=== PATIENT | female | born 1990 | race Hispanic/Latino ===

== ENCOUNTER 2018-03-17 07:31 | Emergency (ER) | payer OTHER ==
[2018-03-17 07:35] VITALS: BMI 46.5
[2018-03-17] MEDS ORDERED: Lidocaine 5% Patch TD STA (07:56)
[2018-03-17] MEDS ORDERED: Lidocaine 5% Patch TD ONE (08:03)
--- NOTE | 2018-03-17 08:52 | ED PDOC ---
HPI: Back Time Seen by Provider: 03/17/18 07:45 Chief Complaint (Nursing): Back Pain Chief Complaint (Provider): Back Pain History Per: Patient History/Exam Limitations: no limitations Onset/Duration Of Symptoms: Days (x1) Current Symptoms Are (Timing): Still Present Quality Of Discomfort: Sharp Previous Symptoms: None Associated Symptoms: None Additional Complaint(s): Helen Benitez is a 27 year old female, with no significant past medical history, who presents to the emergency department complaining of a low back pain onset since yesterday while sitting at work. Patient describes pain as sharp and states left is greater than right and radiates from lower back to buttocks down mostly her left leg. Patient took Motrin with minimal relief. Patient states pain worsen this morning which prompted ED visit. She is flying to [place], [place] and is requesting pain medications. She denies any incontinence, urinary retention, saddle anesthesia, weakness or numbness. She denies any trauma or fever. She denies any history of prior back problems other than mild aches or pains. No further medical complaints. PMD: None provided. Past Medical History Reviewed: Historical Data, Nursing Documentation, Vital Signs Vital Signs: Last Vital Signs Temp 98.3 F 03/17/18 07:37 Pulse 86 03/17/18 07:37 Resp 20 03/17/18 07:37 BP 107/59 L 03/17/18 07:37 Pulse Ox 97 03/17/18 07:37 - Medical History PMH: No Chronic Diseases - Surgical History Surgical History: No Surg Hx - Family History Family History: States: Unknown Family Hx - Social History Current smoker - smoking cessation education provided: No Alcohol: None Drugs: Denies - Home Medications Home Medications: Ambulatory Orders Medication Instructions Recorded Cephalexin [cephalexin] 500 mg PO TID #15 cap 03/17/18 Cyclobenzaprine [Cyclobenzaprine 10 mg PO Q8 PRN #9 tab 03/17/18 HCl] Ibuprofen [Motrin Tab] 600 mg PO Q6 PRN #15 tab 03/17/18 traMADol [Ultram] 50 mg PO TID PRN #12 tab 03/17/18 - Allergies Allergies/Adverse Reactions: Allergies Allergy/AdvReac Type Severity Reaction Status Date / Time No Known Allergies Allergy Verified 03/17/18 07:49 Review of Systems Genitourinary Female: Negative for: Dysuria, Frequency, Incontinence Musculoskeletal: Positive for: Back Pain Skin: Negative for: Rash Neurological: Negative for: Headache, Dizziness Physical Exam - Reviewed Nursing Documentation Reviewed: Yes Vital Signs Reviewed: Yes - Physical Exam Appears: Positive for: No Acute Distress Head Exam: Positive for: ATRAUMATIC, NORMAL INSPECTION, NORMOCEPHALIC Skin: Positive for: Normal Color, Warm, Dry Eye Exam: Positive for: Normal appearance, EOMI, PERRL Neck: Positive for: Painless ROM Cardiovascular/Chest: Positive for: Regular Rate, Rhythm. Negative for: Murmur Respiratory: Positive for: Normal Breath Sounds. Negative for: Respiratory Distress Gastrointestinal/Abdominal: Positive for: Normal Exam, Soft. Negative for: Tenderness Back: Positive for: Other (Left lower lumbar tenderness w/ loss of ROM) Extremity: Positive for: Normal ROM (full ROM of lower extremities). Negative for: Deformity Neurologic/Psych: Positive for: Alert, Oriented. Negative for: Motor/Sensory Deficits - ECG O2 Sat by Pulse Oximetry: 97 (RA) Pulse Ox Interpretation: Normal Medical Decision Making Medical Decision Making: Time: 07:45 Initial Impression: back pain Initial Plan: --Urine dipstick --Urine --Tylenol 325mg tab 650 mg PO --Flexeril 10 mg PO --Toradol 30 mg IM --Lidoderm 1 ea TD --Reevaluation -Plan will be for pain relief and reevaluation. 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 re-evaluated frequently with gradual improvement of symptoms DC w NSAID, muscle relaxant and keflex for UTI. No flank pain or CVA tenderness to suggest acute pyelo at this time, but instructed return for fever , weakness, ascending pain or any concern. ----- Scribe Attestation: Documented by Bao Solis, acting as a scribe for Naif Erazo MD. Provider Scribe Attestation: All medical record entries made by the Scribe were at my direction and personally dictated by me. I have reviewed the chart and agree that the record accurately reflects my personal performance of the history, physical exam, medical decision making, and the department course for this patient. I have also personally directed, reviewed, and agree with the discharge instructions and disposition. Disposition - Clinical Impression Clinical Impression: Back pain, UTI (urinary tract infection) - Patient ED Disposition Is Patient to be Admitted: No Counseled Patient/Family Regarding: Studies Performed, Diagnosis, Need For Followup - Disposition Referrals: [facility] [Outside] Disposition: Routine/Home Disposition Time: 11:01 Condition: STABLE Additional Instructions: FOLLOWUP WITH YOUR DOCTOR FOR FURTHER TESTING. RETURN TO ER FOR ANY WEAKNESS, NUMBNESS, FEVER OR WORSE PAIN. TAKE MEDICATIONS DIRECTED. Prescriptions: Cephalexin [cephalexin] 500 mg PO TID #15 cap Cyclobenzaprine [Cyclobenzaprine HCl] 10 mg PO Q8 PRN #9 tab PRN Reason: Muscle Spasm Ibuprofen [Motrin Tab] 600 mg PO Q6 PRN #15 tab PRN Reason: Pain, Moderate (4-7) traMADol [Ultram] 50 mg PO TID PRN #12 tab PRN Reason: Pain, Moderate (4-7) Instructions: Urinary Tract Infections in Adults, Low Back Pain in Adults Forms: [employer] (Paraguayan), [facility] ED School/Work Excuse
[2018-03-17] MEDS ORDERED: Oxycodone/Acetaminophen 5/325 mg Tab PO STA (09:59)
[2018-03-17] MEDS ORDERED: Oxycodone/Acetaminophen 5/325 mg Tab ONE (10:27)
[2018-03-17 11:31] VITALS: BP 129/79; PULSE 80; RESP 16; TEMP 98.2
[2018-03-17 12:01] LABS: SQUAMOUS EPITHIAL 7 /hpf (0-5); URINE BILIRUBIN NEGATIVE (NEGATIVE); URINE BLOOD NEGATIVE (NEGATIVE); URINE CLARITY SLIGHTY-CLOUDY (Clear); URINE COLOR YELLOW (YELLOW); URINE GLUCOSE (UA) NEG (Normal); URINE LEUKOCYTE ESTERASE MOD Leu/uL (Negative); URINE PROTEIN NEGATIVE (NEGATIVE); URINE UROBILINOGEN 0.2-1.0 mg/dL (0.2-1.0)
[2018-03-18 10:34] VITALS: O2SAT 97
== END 2018-03-17 11:32 | disposition home or self-care (01) ==
LOC: H.ER 07:31
DX: M54.9 Dorsalgia, unspecified (principal); N39.0 Urinary tract infection, site not specified
CPT/HCPCS: 81003; 81025; 87086; 96372; 99283; J1885